=== PATIENT | male | born 1955 | race Caucasian/White ===

== ENCOUNTER → 2016-10-30 | Outpatient (CLI) | payer BC ==
[~2016-10-30] MED LIST: ASPIRIN325 MG PO; COZAAR50 MG PO; OMEPRAZOLE40 MG PO; PROTONIX40 MG PO; ULTRAM50 MG PO
== END ==
LOC: GRAD 15:30
DX: R10.12 Left upper quadrant pain (principal)

== ENCOUNTER 2016-11-11 16:55 | Emergency (ER) | payer BC ==
--- NOTE | ~2016-11-11 | ER ---
PATIENT'S NAME: ADRIANA [facility] AGE: 61 Y [address] ROOM: [place], [place] [id number] LOCATION: [facility] ADMIT DATE: 11/11/2016 ER/Outpatient Report DISCHARGE DATE: 11/11/2016 FAMILY PHYSICIAN: Arnie Hooper MD ATTENDING PHYSICIAN: Artem Hays Time of Arrival: 1706 hours. Time of Evaluation: 1706 hours. CHIEF COMPLAINT: Left upper quadrant abdominal pain. HISTORY OF PRESENT ILLNESS: The patient states he has been dealing with left upper quadrant abdominal pain off and on since the end of August. He states the pain started out initially as being dull, but within the last week, it has become more sharp, it is off and on. Today, he said he had some episodes of nausea, which is different than what he has had before. He has not vomited. He has had decreased appetite. Reports he had a normal small bowel movement this morning. He has not had fever or chills. He has not had cough, cold, congestion, runny nose. Denies having any chest pain or shortness of breath. Pain just stays in the left upper quadrant area. He is scheduled to see a book solicitor in 1 week. He did have an ultrasound done a week ago, just concerned because the pain is not improving he states. He did talk with the book solicitor today and they were not able to change his appointment. ALLERGIES: NO KNOWN ALLERGIES. CURRENT MEDICATIONS: On his chart and reviewed by me. PAST MEDICAL HISTORY: Hypertension, umbilical hernia. PAST SURGERIES: Appendectomy; bowel obstruction with bowel resection, he states that was approximately 10 years ago. SOCIAL HISTORY: Denies use of tobacco or drugs. Does drink beer every other day. REVIEW OF SYSTEMS: All negative other than those mentioned in the HPI. PATIENT'S NAME: ADRIANA [facility] AGE: 61 Y [address] ROOM: [place], [place] [id number] LOCATION: [facility] ADMIT DATE: 11/11/2016 ER/Outpatient Report DISCHARGE DATE: 11/11/2016 FAMILY PHYSICIAN: Arnie Hooper MD ATTENDING PHYSICIAN: Artem Hays PHYSICAL EXAMINATION: VITAL SIGNS: He weighed 115 kg, blood pressure is 155/89, pulse of 86, respirations 16, temperature of 97.1, O2 saturation was 96% on room air. GENERAL: He is awake, alert, and oriented x4. SKIN: [place], warm, and dry. RESPIRATIONS: Even and nonlabored. LUNGS: Lung sounds are clear throughout. HEART: Regular in rate and rhythm. ABDOMEN: Soft, nondistended. Bowel sounds are active. No increased tenderness with deep palpation. EMERGENCY DEPARTMENT COURSE: Saline lock was initiated. He was given Zofran 4 mg IV. LABORATORY DATA AND X-RAYS: Lab work was drawn. EKG was done. EKG does show sinus rhythm. CBC: White count 8, sedimentation rate was 5. Chem panel is within normal limits. Amylase was 29 with a lipase of 126. CRP was 0.81. H pylori was done, it is negative. CT of the abdomen was done. Radiologist reports no acute process. Does have fatty liver, which is also what the ultrasound showed last week. IMPRESSION: Abdominal pain. PLAN: Home, rest. Easy diet. Stop the alcohol use. Follow up with book solicitor as scheduled or see Dr. Hooper if symptoms change within the next 2-3 days. He verbalized understanding. FREYA MAGALLANES APRN FOR DO [facility]/jill /[id number] d: 11/12/16 0059 t: 11/18/16 0651, OUTPATIENT REPORT
[2016-11-11 17:35] LABS: BASOPHIL % 0.4 %; EOSINOPHIL # 0.2 K/uL (0.0-0.5); HEMATOCRIT 46.8 % (37.0-53.0); HEMOGLOBIN 16.6 g/dL (11.0-16.0); IMMATURE GRANULOCYTE % 0.3 %; LYMPHOCYTE # 1.9 K/uL (0.8-4.0); MCH 33.6 pg (27.0-34.0); MCHC 35.5 gm/dL (32.0-36.5); MCV 94.7 fl (83.0-98.0); MONOCYTE # 0.6 K/uL (0.0-1.0); MONOCYTE % 7.8 %; NEUTROPHIL # (ANC) 5.2 K/uL (1.4-9.0); NEUTROPHIL % 65.5 %; NRBC % 0 /100WBC (0-0.00); PLATELET COUNT 202 K/uL (150-450); RBC 4.94 M/uL (3.50-5.50)
[2016-11-11 17:50] LABS: ALK PHOS 76 IU/L (33-138); ALT 31 IU/L (12-78); ANION GAP 11.5 (10.0-19.0); AST 31 IU/L (10-40); BLOOD UREA NITROGEN 11 mg/dL (6-24); CALCIUM 8.8 mg/dL (8.5-10.5); CHLORIDE 106 mMol/L (96-110); CO2 28 mMol/L (22-32); CREATININE 0.9 mg/dL (0.6-1.3); ESTIMATED GFR (MDRD EQUATION) > 60; POTASSIUM 3.5 mMol/L (3.7-5.1); SODIUM 142 mMol/L (135-145); TOTAL BILIRUBIN 0.9 mg/dL (0.0-1.5); TOTAL PROTEIN 7.8 g/dL (6.0-8.4)
[2016-11-20] MEDS ORDERED: COZAAR50 MG PO (11:25)
[2016-11-20] MEDS ORDERED: ULTRAM50 MG PO (11:26)
[2016-11-20] MEDS ORDERED: OMEPRAZOLE40 MG PO (11:26)
[2016-11-20] MEDS ORDERED: ASPIRIN325 MG PO (11:27)
[2016-11-23] MEDS ORDERED: PROTONIX40 MG PO (10:59)
== END 2016-11-11 19:15 | disposition disaster alternative care site (69) ==
LOC: GMED 16:55
PROVIDERS: Emergency Medicine
DX: R10.12 Left upper quadrant pain (principal); I10 Essential (primary) hypertension; Z90.49 Acquired absence of other specified parts of digestive tract; Z79.899 Other long term (current) drug therapy
CPT/HCPCS: Q9967

== ENCOUNTER → 2016-11-23 | Day surgery (SDC) | payer BC ==
[~2016-11-23] VITALS: Ht 179.1 cm; Wt 110.9 kg
== END | disposition disaster alternative care site (69) ==
LOC: GPOC 11-20 14:00 → GEND 08:25 → GPOC 14:00
PROC: 0DB68ZX Excision of Stomach, Via Natural or Artificial Opening Endoscopic, Diagnostic (ICD-10-PCS; principal; 2016-11-23)
PROC: 0DBL8ZX Excision of Transverse Colon, Via Natural or Artificial Opening Endoscopic, Diagnostic (ICD-10-PCS; 2016-11-23)
DX: Z12.11 Encounter for screening for malignant neoplasm of colon (principal); D12.3 Benign neoplasm of transverse colon; I10 Essential (primary) hypertension; Z98.890 Other specified postprocedural states
CPT/HCPCS: J2001; J7030